=== PATIENT | female | born 1955 | race Two or more races ===

== ENCOUNTER 2017-04-05 10:55 | Emergency (ER) | payer MEDICAID, OTHER ==
[~2017-04-05] VITALS: Ht 152.4 cm; Wt 51.7 kg
--- NOTE | 2017-04-05 11:52 | NUR ---
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 PATIENT NOTED WITH FEVER 102. PATIENT IN NO DISTRESS. RESPIRATION EVEN AND UNLABORED. SKIN IS WARM TO TOUCH. OTHER VSS.
[2017-04-05] MEDS ORDERED: MORPHINE SULFATE INJ 4 MG/ML DISP.SYRIN ONE ×2 (12:26→13:29)
[2017-04-05] MEDS ORDERED: FAMOTIDINE/PF INJ 20 MG/2 ML VIAL IV ONE ×2 (12:26→12:30)
[2017-04-05] MEDS ORDERED: ONDANSETRON HCL/PF 4 MG/2 ML VIAL ONE (12:26)
[2017-04-05] MEDS ORDERED: MORPHINE SULFATE INJ 2 MG/ML DISP.SYRIN IV ONE ×2 (12:30→13:30)
[2017-04-05] MEDS ORDERED: IV NS 0.9% 1,000 ML BAG IV ONE ×2 (12:30→13:30)
[2017-04-05] MEDS ORDERED: ONDANSETRON HCL/PF 4 MG/2 ML VIAL IVP ONE (12:30)
[2017-04-05 12:35] LABS: BASOPHILS # (AUTO) 0.1 /CMM (0.0-0.2); BASOPHILS % (AUTO) 0.9 % (0.0-2.0); EOSINOPHILS # (AUTO) 0.1 /CMM (0.0-0.7); EOSINOPHILS % (AUTO) 0.7 % (0.0-6.0); HEMATOCRIT 42 % (33-45); HEMOGLOBIN 14.6 g/dL (11.5-14.8); LYMPHOCYTES # (AUTO) 0.3 /CMM (0.8-4.8); LYMPHOCYTES % (AUTO) 4.2 % (20.0-44.0); MEAN CORPUSCULAR HEMOGLOBIN 32 PG (26.0-33.0); MEAN CORPUSCULAR HGB CONC 35 g/dl (31.0-36.0); MEAN CORPUSCULAR VOLUME 93 fL (82-100); MONOCYTES # (AUTO) 0.3 /CMM (0.1-1.30); NEUTROPHILS # (AUTO) 7.2 /CMM (1.8-8.9); NEUTROPHILS % (AUTO) 90.2 % (43.0-81.0); PLATELET COUNT (AUTO) 217 /CMM (150-450); RDW COEFFICIENT OF VARIATION 11.3 (11.5-15.0); RED BLOOD CELL COUNT(AUTO) 4.56 MIL/uL (4.0-5.2)
[2017-04-05 12:38] LABS: APPEARANCE,URINE Clear (CLEAR); BILIRUBIN,URINE Negative (NEGATIVE); BLOOD, URINE Negative Ery/uL (NEGATIVE); COLOR,URINE Yellow (YELLOW); KETONES,URINE Negative (NEGATIVE); LEUKOCYTE ESTERASE ,URINE Moderate (NEGATIVE); NITRITE, URINE Negative (NEGATIVE); PROTEIN,URINE Negative (NEGATIVE); UGLUCOSE Negative (NEGATIVE); UROBILINOGEN,URINE 0.2 EU/dL (0.2)
[2017-04-05 12:47] LABS: CALCIUM, SERUM 9.2 mg/dL (8.5-10.1); CREATININE 0.9 mg/dL (0.6-1.3); POTASSIUM 3.9 mmol/L (3.5-5.1)
[2017-04-05 12:48] LABS: BACTERIA,URINE 1+ /HPF (None Seen); RBC,URINE NONE SEEN /HPF (0-2); SQUAMOUS EPITHELIAL CELL,UR Few /HPF (None Seen)
[2017-04-05 12:53] LABS: ALBUMIN 4.1 g/dL (3.4-5.0); BILIRUBIN,DIRECT 0.1 mg/dL (0.0-0.2); BILIRUBIN,TOTAL 0.7 mg/dL (0.2-1.0); TOTAL PROTEIN, SERUM 7.9 g/dL (6.4-8.2)
[2017-04-05 12:57] LABS: INR 0.89 (0.87-1.13); PROTHROMBIN TIME 9.3 SECS (9.5-12.7)
[2017-04-05] MEDS ORDERED: CEFTRIAXONE 1GM BAG (ER ONLY) 50 ML IV ONE (13:29)
[2017-04-05] MEDS ORDERED: IV NS 0.9% 250 ML IV ONE (13:29)
[2017-04-05] MEDS ORDERED: IBUPROFEN 600 MG TABLET PO ONE ×2 (13:29→13:30)
[2017-04-05] MEDS ORDERED: IOHEXOL-300 100 ML VIAL IV ONE (13:29)
[2017-04-05] MEDS ORDERED: CEFTRIAXONE 2 G in IV D5W 50 ML IV ONE (13:30)
--- NOTE | 2017-04-05 14:00 | NUR ---
PT TO [facility]SCAN
[2017-04-05 16:36] VITALS: BP 97/52
--- NOTE | 2017-04-05 16:37 | NUR ---
Patient discharged to home in stable condition. Written and verbal after care instructions given. Patient verbalizes understanding of instruction.IV removed. Catheter intact and site benign. Pressure and 4x4 applied to site. No bleeding noted.
== END 2017-04-05 16:45 | disposition home or self-care (01) ==
LOC: ER 10:57
DX: N12 Tubulo-interstitial nephritis, not specified as acute or chronic (principal); Z90.49 Acquired absence of other specified parts of digestive tract
CPT/HCPCS: 36415; 74160; 80048; 80076; 81001; 83690; 85025; 85730; 87040 ×2; 87086; 96361; 96365; 96375; 96376; 99285; A4606; J0696; J2270 ×2; J2405; J3490; J7030 ×2; J7050; Q9967; Z7610; 81000-TC; J7060

== ENCOUNTER 2021-08-23 22:01 | Emergency (ER) | payer OTHER ==
[~2021-08-23] VITALS: Ht 144.8 cm; Wt 65.8 kg
[2021-08-23] MEDS ORDERED: ACETAMINOPHEN 325 MG TABLET ONE (22:38)
--- NOTE | 2021-08-23 22:40 | NUR ---
TO ER BED 4. BIBS C/O L HIP AND LEG PAIN S/P FALL FROM STEP LADDER WHEN CLEANING. ABRASSIONS AND BRUISING NOTED. CONNECTED TO MONITOR. AWAITING MD BLAIR
[2021-08-23] MEDS: ACETAMINOPHEN 325 MG TABLET PO ONE (22:41)
--- NOTE | 2021-08-23 22:45 | NUR ---
XRAY VAT BEDSIDE
[2021-08-23 23:33] VITALS: BP 146/70
--- NOTE | 2021-08-23 23:33 | NUR ---
Patient discharged to home in stable condition. Written and verbal after care instructions given. Patient verbalizes understanding of instruction.
== END 2021-08-23 23:33 | disposition home or self-care (01) ==
LOC: ER 22:05
DX: M25.552 Pain in left hip (principal); M54.50 Low back pain, unspecified; R07.81 Pleurodynia; Z86.69 Personal history of other diseases of the nervous system and sense organs; Z90.49 Acquired absence of other specified parts of digestive tract; W10.9XXA Fall (on) (from) unspecified stairs and steps, initial encounter; Y93.89 Activity, other specified; Y92.89 Other specified places as the place of occurrence of the external cause; Y99.8 Other external cause status
CPT/HCPCS: 71111-TC; 72110-TC; 73502